=== PATIENT | female | born 1975 | race Caucasian/White ===

== ENCOUNTER 2018-12-21 01:47 | Emergency (ER) | payer OTHER ==
[~2018-12-21] VITALS: Ht 157.5 cm; Wt 52.2 kg
[2018-12-21] MEDS ORDERED: KETOROLAC TROMETHAMINE INJ 60 MG/2 ML VIAL IM ONE ×2 (04:00→04:05)
[2018-12-21 04:48] LABS: APPEARANCE,URINE CLEAR (CLEAR); BILIRUBIN,URINE NEGATIVE (NEGATIVE); BLOOD, URINE NEGATIVE Ery/uL (NEGATIVE); COLOR,URINE YELLOW (YELLOW); KETONES,URINE NEGATIVE (NEGATIVE); LEUKOCYTE ESTERASE ,URINE NEGATIVE (NEGATIVE); NITRITE, URINE NEGATIVE (NEGATIVE); PROTEIN,URINE NEGATIVE (NEGATIVE); UGLUCOSE NEGATIVE (NEGATIVE); UROBILINOGEN,URINE 0.2 EU/dL (0.2)
[2018-12-21] MEDS ORDERED: HYDROCODONE BIT/HOMATROPINE 5 ML UDC ONE (04:53)
[2018-12-21] MEDS ORDERED: HYDROCODONE BIT/HOMATROPINE 5 ML UDC PO ONE (05:00)
[2018-12-21 05:18] VITALS: BP 121/79
== END 2018-12-21 05:20 | disposition home or self-care (01) ==
LOC: ER 01:47
DX: R05 Cough (principal); M54.5 Low back pain; Z88.1 Allergy status to other antibiotic agents
CPT/HCPCS: 71045-TC; 81000-TC; 84703-TC; J1885